=== PATIENT | female | born 1995 | race Caucasian/White ===

== ENCOUNTER 2017-05-26 12:27 | Emergency (ER) | payer OTHER ==
[2017-05-26 12:31] VITALS: TEMP 97.7
[2017-05-26] MEDS ORDERED: FAMOTIDINE 20 MG TAB PO ONE (12:45)
[2017-05-26] MEDS ORDERED: ONDANSETRON DISINTEGRATING 4 MG TAB ONE (13:03)
--- NOTE | 2017-05-26 13:03 | EDPHY ---
H & P Stated Complaint: Ate cashews at 12.15, feels nauseous and throat "tingling" HPI/ROS: CHIEF COMPLAINT: Possible allergic reaction HISTORY OF PRESENT ILLNESS: The patient reports eating cashew soup approximately 1 hour ago at home. She then began to feel as though her throat was scratchy. 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 She took 50 mg of Benadryl at 12:15 p.m.. She says that she is feeling fine at this time. She has no complaints. No drooling. No difficulty swallowing. No swelling of the lips or face. No rash or itchiness. She was just concerned due to the told previous allergy. No other associated complaints or modifying factors. REVIEW OF SYSTEMS: Ten systems reviewed and are negative unless otherwise noted in the HPI PAST MEDICAL HISTORY: Depression and asthma PAST SURGICAL HISTORY: None SOCIAL HISTORY: Smokes tobacco. Denies alcohol or illicit substance use. Recently moved from [facility]. No establish care at this time FAMILY HISTORY: Noncontributory EXAMINATION General Appearance: Alert, no distress Head: normocephalic, atraumatic Eyes: Pupils equal and round, no conjunctival pallor or injection ENT, Mouth: Mucous membranes moist. Airway is widely patent. There is no swelling of the lips or tongue. No swelling of the face. No drooling. No stridor. Neck: Normal inspection, supple, non-tender Respiratory: Lungs are clear to auscultation. No wheezing, rhonchi or crackles Cardiovascular: Regular rate and rhythm Neurological: A&O, nonfocal, strength is symmetric in all 4 limbs Skin: Warm and dry, no rash. No petechiae. No purpura. No urticaria Extremities: Nontender, no pedal edema Psychiatric: Mood and affect normal DIFFERENTIAL DIAGNOSES: Including but not limited to allergic reaction, anaphylaxis MDM: 12:45 p.m. Possible allergic reaction to cashews. She has no evidence of anaphylaxis. She has no complaints and is feeling fine at time of examination. She was concerned due to the intake of cashews, as she was told in the past she is allergic to cashews. She has no airway swelling. No facial edema or erythema. She has no systemic or localize rash. She is declining steroid. She says that she feels fine at this time. I have ordered Pepcid p.o. I will monitor her. 1:00 p.m. Patient re-evaluated. She continues to have no complaints. Airway is widely patent. There is no swelling of the lips, tongue or face. No erythema of the airway. No drooling or stridor. No rash. 1:15 p.m. Patient re-evaluated. In the past 15 minutes she has become nauseated. She still has no swelling of the lips or tongue. No sore throat. No difficulty swallowing. Zofran has been administered. I have ordered promethazine p. o.. She has declined intramuscular promethazine. She still exhibits no anaphylaxis or systemic reaction. 1:55 p.m. Patient re-evaluated. She is resting complete her nausea has resolved. She still has no rash. She still has no swelling of the lips or airway. Airway is widely patent without any evidence of anaphylaxis. She is asking to be discharged home. We discussed discharge. I recommend that she take a nonsedating antihistamine twice daily for the next 2 days. I recommend that she Benadryl every 6 hours as needed. Recommend that she call 911 or return to the ER for any swelling of the face or lips, shortness of breath or rash. She is comfortable this plan and discharged home stable condition Source: Patient Exam Limitations: No limitations - Personal History LMP (Females 10-55): Over 28 Days Ago Current Tetanus Diphtheria and Acellular Pertussis (TDAP): Yes - Medical/Surgical History Hx Asthma: Yes Hx Chronic Respiratory Disease: No Hx Diabetes: No Hx Cardiac Disease: No Hx Renal Disease: No Hx Cirrhosis: No Hx Alcoholism: No Hx HIV/AIDS: No Hx Splenectomy or Spleen Trauma: No Other PMH: Asthma. - Social History Smoking Status: Light smoker Constitutional: Initial Vital Signs Temperature (C) 97.7 F 05/26/17 12:28 Heart Rate 106 H 05/26/17 12:28 Respiratory Rate 18 05/26/17 12:28 Blood Pressure 123/89 H 05/26/17 12:28 O2 Sat (%) 96 05/26/17 12:28 O2 Delivery Mode Room Air Allergies/Adverse Reactions: nut - unspecified Allergy (Verified 05/26/17 12:31) Sulfa (Sulfonamide Antibiotics) Allergy (Verified 05/26/17 12:31) Home Medications: Medication Instructions Recorded Haldol 05/26/17 Invega Sustenna (RX) 05/26/17 Lexapro 05/26/17 Wellbutrin Sr 05/26/17 Medical Decision Making - Data Points Medications Given: Discontinued Medications Famotidine (Pepcid) 20 mg PO EDNOW ONE Stop: 05/26/17 12:46 Last Admin: 05/26/17 12:48 Dose: 20 mg Ondansetron HCl (Zofran Odt) 4 mg PO EDNOW ONE Stop: 05/26/17 13:14 Last Admin: 05/26/17 13:14 Dose: 4 mg Promethazine HCl (Phenergan) 25 mg PO EDNOW ONE Stop: 05/26/17 13:18 Last Admin: 05/26/17 13:35 Dose: 25 mg Departure - Departure Disposition: Home, Routine, Self-Care Clinical Impression: Allergic reaction Qualifiers: Encounter type: initial encounter Qualified Code(s): T78.40XA - Allergy, unspecified, initial encounter Condition: Good Instructions: Food Allergy (ED), Anaphylaxis (ED) Additional Instructions: 1. Recommend non sedating antihistamine 1 pill by mouth twice daily for 2-3 days 2. Would recommend Benadryl 50 mg every 6 hours for the next 2-3 days 3. Return to ED or call 911 for swelling of the lips or face, systemic rash, difficulty breathing Referrals: UNKNOWN,UNKNOWN [Other] - As per Instructions Tavares Snell MD [Medical Doctor] - As per Instructions
[2017-05-26] MEDS ORDERED: ONDANSETRON DISINTEGRATING 4 MG TAB PO ONE (13:13)
[2017-05-26 13:16] VITALS: RESP 16; O2SAT 95
[2017-05-26] MEDS ORDERED: PROMETHAZINE HCL 25 MG TAB PO ONE (13:17)
[2017-05-26 14:32] VITALS: BP 116/79; PULSE 87
== END 2017-05-26 14:29 | disposition home or self-care (01) ==
DX: T78.1XXA Other adverse food reactions, not elsewhere classified, initial encounter (principal); J45.909 Unspecified asthma, uncomplicated; R09.89 Other specified symptoms and signs involving the circulatory and respiratory systems; F17.200 Nicotine dependence, unspecified, uncomplicated

== ENCOUNTER → 2017-07-16 | Outpatient (CLI) | payer OTHER | LOC: BMCIMAGING 13:54 | PROVIDERS: ATTEND Family Medicine | DX: S93.401A Sprain of unspecified ligament of right ankle, initial encounter (principal) ==